=== PATIENT | male | born 1995 | race Caucasian/White ===

== ENCOUNTER 2017-03-09 08:29 | Emergency (ER) | payer BC ==
[2017-03-09] MEDS ORDERED: oxyCODONE HCL/ACETAMINOPHEN 1 TAB TABLET PO ONE (08:59)
--- NOTE | 2017-03-09 09:04 | ERNOTE ---
ENT HPI Presenting Symptoms: dental pain Time Seen by Provider: 03/09/17 08:49 Source: patient Exam Limitations: no limitations - Immun/Allergies/Home Medications Allergies/Adverse Reactions: Allergies Allergy/AdvReac Type Severity Reaction Status Date / Time No Known Allergies Allergy Verified 03/09/17 08:40 Home Medications: HOME MEDICATIONS Amox Tr/Potassium Clavulanate [Augmentin 875-125 Tablet] 875 mg PO Q12H [Last Taken 03/09/17] oxyCODONE HCL/ACETAMINOPHEN [Percocet 5 MG/325 MG] 1 tab PO Q4H PRN #20 tab 08/14 [Last Taken Unknown] - History of Present Illness Narrative: Patient saw a dentist a couple of months ago, root canal was recommended but patient does not have the money for that as he does not have dental insurance. The pain and swelling got worse and he was seen in the walk in clinic and started on augmentin and ibuprofen. There continues to be more swelling and throbbing pain, no fever, no other ENT symptoms Review of Systems - Review of Systems Constitutional: Absent: recent illness, fever ENT: Present: ear pain - right ear. Absent: nose pain, nose congestion, sore throat Respiratory: Absent: shortness of breath Cardiology: Absent: chest pain Gastrointestinal/Abdominal: Absent: nausea, abdominal pain Neurological: Absent: headache - Patient's Past Medical History Patient History - Medical: No pertinent hx Patient History - Cardiac/Respiratory: No pertinent hx Patient History - Cancer: No Hx of Cancer Patient History - Surgical Procedures: Other - Family History Mother Family History - Medical: Other Father Family History - Medical: No pertinent hx - Social History Living Situations: home Abuse History: No History of abuse Psych History: No pertinent hx Smoking Status: Current every day smoker Have you smoked in the past 12 months: - 10 Do you dip or chew tobacco: No Alcohol Use: occasionally Drug Use: none Physical Exam - Physical Exam General Appearance: Present: wd/wn, alert, no apparent distress, obese Ears, Nose, Throat: Present: normal except - - fractured tooth in left lower ( non tender), tender tooth in right lower jaw, normal pharynx Neck: Absent: lymphadenopathy (R), lymphadenopathy (L) Respiratory: Present: no respiratory distress, normal breath sounds, no accessory muscle use, lungs clear Cardiovascular/Chest: Present: regular rate, rhythm, no murmur Neurological Exam: Present: alert, oriented, normal mood/affect Skin Exam: Present: normal color, warm/dry ED Progress - Vital Signs Patient's Vital Signs:: I have reviewed the patient's vital signs. Vital Signs: Vital Signs 03/09/17 08:34 Temperature 36.4 C L Pulse Rate 67 Respiratory 14 Rate Blood Pressure 146/61 O2 Sat by Pulse 98 Oximetry - Progress/Reassessment Chief Complaint: Dental Problem Progress Note-Subjective: 03/09/17 08:55 discussed need to follow up with dentist to have tooth pulled, info on dental clinic in [place] given Departure Clinical Impression: Dental abscess - Departure Disposition: Home self-care Condition: Good Instructions: Dental Abscess, [id number] Additional Instructions: continue the antibiotic, call the dentist this morning for follow up Referrals: Deo Grady MD [Primary Care Provider] - Prescriptions: oxyCODONE HCL/ACETAMINOPHEN [Percocet 5 MG/325 MG] 1 tab PO Q4H PRN #20 tab PRN Reason: Pain
[2017-03-09] MEDS ORDERED: oxyCODONE HCL/ACETAMINOPHEN 1 TAB TABLET ONE (09:07)
[2017-03-09 09:37] VITALS: BP 142/83
== END 2017-03-09 09:15 | disposition home or self-care (01) ==
LOC: ER 08:29
DX: K04.7 Periapical abscess without sinus (principal); F17.200 Nicotine dependence, unspecified, uncomplicated